=== PATIENT | female | born 1970 | race Two or more races ===

== ENCOUNTER 2019-03-11 11:13 | Emergency (ER) | payer MEDICAID ==
[~2019-03-11] VITALS: Ht 152.4 cm; Wt 77.1 kg
[2019-03-11 13:55] VITALS: BP 140/82
== END 2019-03-11 14:06 | disposition home or self-care (01) ==
LOC: ER 11:21
DX: R51 Headache (principal); I10 Essential (primary) hypertension; E78.00 Pure hypercholesterolemia, unspecified
CPT/HCPCS: 70450